=== PATIENT | male | born 1995 | race Caucasian/White ===

== ENCOUNTER 2018-09-15 15:51 | Emergency (ER) | payer SELFPAY ==
[~2018-09-15] VITALS: Ht 170.2 cm; Wt 59.1 kg
[~2018-09-15 15:51] MED LIST changes: -NORCO 325 MG-51 TAB PO
[2018-09-15 15:55] VITALS: TEMP 97
[2018-09-15] MEDS ORDERED: NORCO 325 MG-51 TAB PO (17:18)
[2018-09-15 17:47] VITALS: BP 115/66; PULSE 87
== END 2018-09-15 17:48 | disposition home or self-care (01) ==
LOC: COL.ER 15:51
DX: M79.641 Pain in right hand (principal); Z87.891 Personal history of nicotine dependence

== ENCOUNTER → 2018-09-15 | Emergency (ER) | payer SELFPAY ==
[~2018-09-15] VITALS: Ht 170.2 cm; Wt 59.1 kg
[~2018-09-15] MED LIST: CEPHALEXIN500 M1 PO; NORCO 325 MG-51 TAB PO
[2018-09-15 10:01] VITALS: TEMP 98.3
[2018-09-15 12:15] VITALS: BP 112/89; PULSE 118
== END ==
LOC: COL.ER 10:00
DX: S60.551A Superficial foreign body of right hand, initial encounter (principal); Z87.891 Personal history of nicotine dependence

== ENCOUNTER 2021-08-20 14:33 | Outpatient (RCR) | payer OTHER ==
[~2021-08-20 14:33] MED LIST changes: +NORCO 325 MG-51 TAB PO
== END 2021-08-23 ==
LOC: WSOH
DX: M25.511 Pain in right shoulder (principal); Y99.0 Civilian activity done for income or pay